=== PATIENT | male | born 1980 | race Hispanic/Latino ===

== ENCOUNTER → 2020-04-20 | Day surgery (SDC) | payer SELFPAY ==
[~2020-04-20] MED LIST: OR PHACO EYE KIT ONE; PREOP PHACO EYE KIT ONE
[2020-04-20 15:10] VITALS: BP 132/86
== END | disposition home or self-care (01) ==
LOC: OR 10:50
PROVIDERS: ATTEND Ophthalmology
DX: H25.12 Age-related nuclear cataract, left eye (principal); Z01.812 Encounter for preprocedural laboratory examination; Z20.828 Contact with and (suspected) exposure to other viral communicable diseases; Z87.891 Personal history of nicotine dependence
CPT/HCPCS: 66984; U0002; V2632

== ENCOUNTER → 2020-05-05 | Day surgery (SDC) | payer SELFPAY ==
[2020-05-05 13:11] VITALS: BP 117/89
== END | disposition home or self-care (01) ==
LOC: OR 09:43
PROVIDERS: ATTEND Ophthalmology
DX: H25.11 Age-related nuclear cataract, right eye (principal); Z01.812 Encounter for preprocedural laboratory examination; Z20.822 Contact with and (suspected) exposure to COVID-19
CPT/HCPCS: 66984; U0002; V2632